=== PATIENT | female | born 1975 | race American Indian/Alaskan Native ===

== ENCOUNTER 2018-12-28 14:24 | Emergency (ER) | payer MEDICAID ==
--- NOTE | 2018-12-28 14:33 | Emergency Department Report ---
ED Abdominal Pain HPI - General Chief Complaint: Abdominal Pain Stated Complaint: ABD PAIN Time Seen by Provider: 12/28/18 14:31 Source: patient, EMS (ems notes not available at time of chart dictation), RN notes reviewed Mode of arrival: Stretcher Limitations: No Limitations - History of Present Illness Initial Comments: This is a 43-year-old female with a 10 year history of interstitial cystitis, reports 2 C-sections in the past, presenting to the emergency room with a complaint of interstitial cystitis exacerbation. Patient reports being her usual state of health yesterday, when she felt like her "uterus was coming out of my vagina", after mopping on a basketball court. Overnight she had intermittent discomfort, decreased sleep, lower back discomfort, dysuria, bladder spasms, which she reports is consistent with her prior episodes of interstitial cystitis. She reports that she saw an outpatient physician within the past few weeks, and was prescribed Bactrim for "bacteria in my urine." She thinks that the Bactrim antibiotic worsened her symptoms. She contacted 911, and was given Toradol in the field, which improved her symptoms. She has intermittent dysuria, but denies new or different gynecologic discharge. She denies headache, neck pain, chest pain, upper abdominal pain, nausea, vomiting, endorses resolved back pain, denies extremity weakness, numbness. Given hydromorphone in the emergency room, which improved her symptoms. She reports her outpatient physician managing her interstitial cystitis has tried multiple therapies, including gabapentin and amitriptyline, which have worked in the past, in addition to hydrodistention therapy, which she is ambivalent about. She is not currently on gabapentin or amitriptyline. MD Complaint: other Location: suprapubic Radiation: none Migration to: no migration Severity: moderate Severity scale (0 -10): 10 Quality: cramping, aching Consistency: intermittent Improves With: medication, rest Worsens With: movement Associated Symptoms: dysuria - Related Data Previous Rx's Medication Instructions Recorded Last Taken Type HYDROcodone/APAP 5-325 [[place] 1 each PO Q4HR PRN #20 tablet 12/13/16 Unknown Rx 5/325] Acetaminophen [Tylenol Arthritis] 650 mg PO Q6HR PRN #30 tablet.er 12/28/18 Unknown Rx Ibuprofen [Motrin] 600 mg PO Q8H PRN #30 tablet 12/28/18 Unknown Rx Nitrofurantoin [place]/M-Cryst 100 mg PO Q12HR #14 capsule 12/28/18 Unknown Rx [Macrobid CAP] Phenazopyridine [Pyridium] 100 mg PO TID PRN #6 tab 12/28/18 Unknown Rx Allergies Allergy/AdvReac Type Severity Reaction Status Date / Time No Known Allergies Allergy Verified 12/12/16 23:22 ED Review of Systems ROS: Stated complaint: ABD PAIN Other details as noted in HPI Constitutional: denies: fever Eyes: denies: vision change ENT: denies: epistaxis Respiratory: denies: cough Cardiovascular: denies: chest pain Gastrointestinal: denies: nausea, vomiting Genitourinary: dysuria Musculoskeletal: back pain Skin: denies: lesions Neurological: denies: weakness Psychiatric: anxiety ED Past Medical Hx - Past Medical History Previous Medical History?: Yes Hx Hypertension: No Hx Pulmonary Embolism: No Hx Liver Disease: No Hx Renal Disease: No Hx Sickle Cell Disease: No Hx Seizures: No Hx Kidney Stones: No Hx Psychiatric Treatment: No Hx Tuberculosis: No Hx Dementia: No Hx HIV: No Additional medical history: interstitial cystitis - Surgical History Past Surgical History?: Yes Additional Surgical History: x 2 - Social History Smoking Status: Current Every Day Smoker Substance Use Type: None - Medications Home Medications: Home Medications Medication Instructions Recorded Confirmed Last Taken Type HYDROcodone/APAP 5-325 [[place] 1 each PO Q4HR PRN #20 tablet 12/13/16 Unknown Rx 5/325] Acetaminophen [Tylenol Arthritis] 650 mg PO Q6HR PRN #30 tablet.er 12/28/18 Unknown Rx Ibuprofen [Motrin] 600 mg PO Q8H PRN #30 tablet 12/28/18 Unknown Rx Nitrofurantoin [place]/M-Cryst 100 mg PO Q12HR #14 capsule 12/28/18 Unknown Rx [Macrobid CAP] Phenazopyridine [Pyridium] 100 mg PO TID PRN #6 tab 12/28/18 Unknown Rx ED Physical Exam - General Limitations: No Limitations General appearance: alert, in no apparent distress - Head Head exam: Present: atraumatic, normocephalic - Eye Eye exam: Present: normal appearance, EOMI. Absent: nystagmus - ENT ENT exam: Present: normal exam, normal orophraynx, mucous membranes moist, normal external ear exam - Neck Neck exam: Present: normal inspection, full ROM. Absent: tenderness, meningismus - Respiratory Respiratory exam: Present: normal lung sounds bilaterally. Absent: respiratory distress - Cardiovascular Cardiovascular Exam: Present: regular rate, normal rhythm, normal heart sounds. Absent: bradycardia, tachycardia, irregular rhythm, systolic murmur, diastolic murmur, rubs, gallop - GI/Abdominal GI/Abdominal exam: Present: soft, tenderness (there is isolated suprapubic tenderness. There is no right lower quadrant tenderness, there is no left lower quadrant tenderness, there is a negative Pena sign, there is a negative Rovsing sign). Absent: distended, guarding, rebound, rigid - External exam: Present: normal external exam. Absent: erythema, swelling, lesions, lacerations, ecchymosis, bleeding Speculum exam: Present: normal speculum exam, other (chaperoned by nurse MAO HOWARD). Absent: erythema, vaginal discharge, cervical discharge, vaginal bleeding, foreign body, tissue, laceration - Extremities Exam Extremities exam: Present: normal inspection, full ROM, normal capillary refill, other (2+ pulses noted in the bilateral upper, lower extremities. Compartments soft. No long bony tenderness. The pelvis is stable.). Absent: pedal edema, joint swelling, calf tenderness - Back Exam Back exam: Present: normal inspection, full ROM. Absent: tenderness, CVA tenderness (R), paraspinal tenderness, vertebral tenderness - Neurological Exam Neurological exam: Present: alert, oriented X3, CN II-XII intact, normal gait, other (Extraocular movements intact. Tongue midline. No facial droop. Facial sensation intact to light touch in the V1, V2, V3 distribution bilaterally. 5 and 5 strength in 4 extremities.. Sensation is intact to light touch in 4 extremities.). Absent: motor sensory deficit - Psychiatric Psychiatric exam: Present: anxious - Skin Skin exam: Present: warm, dry, intact, normal color. Absent: rash ED Course Vital Signs 12/28/18 12/28/18 14:29 14:55 Temperature 98.9 F Pulse Rate 83 Respiratory 15 20 Rate Blood Pressure 117/84 O2 Sat by Pulse 100 Oximetry - Reevaluation(s) Reevaluation #1: 12/28/18 15:49 Differential diagnoses, including but not limited to: Interstitial cystitis, urinary tract infection Assessment and plan: 43-year-old female with probable interstitial cystitis flare, exacerbation. She is afebrile with reassuring vital signs and has a benign physical examination. Patient reports success with outpatient long-term medications, including gabapentin and amitriptyline. She also has a specialist who is performing bladder distention therapy. The patient was treated ac pportively with hydromorphone for acute pain control, given Toradol in the field, screening laboratory studies so far unremarkable, urinalysis is pending, we will reassess once her urinalysis results. Will not discharge gabapentin or amitriptyline as his medications require observation and monitoring, but we will discharge with NSAIDs, acetaminophen, Pyridium, and instructions to follow up. The patient was also counseled to explore complementary therapy, such as diet modifications, [place] exercises and appropriate pelvic floor physical therapy. ED Medical Decision Making - Lab Data Result diagrams: 12/28/18 14:51 12/28/18 14:51 Vital Signs 12/28/18 12/28/18 14:29 14:55 Temperature 98.9 F Pulse Rate 83 Respiratory 15 20 Rate Blood Pressure 117/84 O2 Sat by Pulse 100 Oximetry Lab Results 12/28/18 12/28/18 12/28/18 Range/Units 14:51 14:51 14:51 WBC 8.0 (4.5-11.0) K/mm3 RBC 4.19 (3.65-5.03) M/mm3 Hgb 13.7 (10.1-14.3) gm/dl Hct 39.0 (30.3-42.9) % MCV 93 (79-97) fl MCH 33 H (28-32) pg MCHC 35 H (30-34) % RDW 13.2 (13.2-15.2) % Plt Count 258 (140-440) K/mm3 Sodium 137 (137-145) mmol/L Potassium 3.9 (3.6-5.0) mmol/L Chloride 103.9 (98-107) mmol/L Carbon Dioxide 23 (22-30) mmol/L Anion Gap 14 mmol/L BUN 13 (7-17) mg/dL Creatinine 1.0 (0.7-1.2) mg/dL Estimated GFR > 60 ml/min BUN/Creatinine Ratio 13 % Glucose 78 (65-100) mg/dL Calcium 8.8 (8.4-10.2) mg/dL Total Bilirubin 0.30 (0.1-1.2) mg/dL AST 16 (5-40) units/L ALT 10 (7-56) units/L Alkaline Phosphatase 59 (35-129) units/L Total Protein 7.4 (6.3-8.2) g/dL Albumin 4.2 (3.9-5) g/dL Albumin/Globulin Ratio 1.3 % Lipase 25 (13-60) units/L HCG, Quant < 2 (0-4) mIU/mL Lab Results 12/28/18 12/28/18 12/28/18 Range/Units 14:51 14:51 14:51 WBC 8.0 (4.5-11.0) K/mm3 RBC 4.19 (3.65-5.03) M/mm3 Hgb 13.7 (10.1-14.3) gm/dl Hct 39.0 (30.3-42.9) % MCV 93 (79-97) fl MCH 33 H (28-32) pg MCHC 35 H (30-34) % RDW 13.2 (13.2-15.2) % Plt Count 258 (140-440) K/mm3 Sodium 137 (137-145) mmol/L Potassium 3.9 (3.6-5.0) mmol/L Chloride 103.9 (98-107) mmol/L Carbon Dioxide 23 (22-30) mmol/L Anion Gap 14 mmol/L BUN 13 (7-17) mg/dL Creatinine 1.0 (0.7-1.2) mg/dL Estimated GFR > 60 ml/min BUN/Creatinine Ratio 13 % Glucose 78 (65-100) mg/dL Calcium 8.8 (8.4-10.2) mg/dL Total Bilirubin 0.30 (0.1-1.2) mg/dL AST 16 (5-40) units/L ALT 10 (7-56) units/L Alkaline Phosphatase 59 (35-129) units/L Total Protein 7.4 (6.3-8.2) g/dL Albumin 4.2 (3.9-5) g/dL Albumin/Globulin Ratio 1.3 % Lipase 25 (13-60) units/L HCG, Quant < 2 (0-4) mIU/mL Urine Color (Yellow) Urine Turbidity (Clear) Urine pH (5.0-7.0) Ur Specific [place] (1.003-1.030) Urine Protein (Negative) mg/dL Urine Glucose (UA) (Negative) mg/dL Urine Ketones (Negative) mg/dL Urine Blood (Negative) Urine Nitrite (Negative) Urine Bilirubin (Negative) Urine Urobilinogen (<2.0) mg/dL Ur Leukocyte Esterase (Negative) Urine WBC (Auto) (0.0-6.0) /HPF Urine RBC (Auto) (0.0-6.0) /HPF U Epithel Cells (Auto) (0-13.0) /HPF Urine Bacteria (Auto) (Negative) /HPF Calcium Oxalate Crystal Hyaline Casts /LPF Urine Mucus /HPF 12/28/18 Range/Units 15:24 WBC (4.5-11.0) K/mm3 RBC (3.65-5.03) M/mm3 Hgb (10.1-14.3) gm/dl Hct (30.3-42.9) % MCV (79-97) fl MCH (28-32) pg MCHC (30-34) % RDW (13.2-15.2) % Plt Count (140-440) K/mm3 Sodium (137-145) mmol/L Potassium (3.6-5.0) mmol/L Chloride (98-107) mmol/L Carbon Dioxide (22-30) mmol/L Anion Gap mmol/L BUN (7-17) mg/dL Creatinine (0.7-1.2) mg/dL Estimated GFR ml/min BUN/Creatinine Ratio % Glucose (65-100) mg/dL Calcium (8.4-10.2) mg/dL Total Bilirubin (0.1-1.2) mg/dL AST (5-40) units/L ALT (7-56) units/L Alkaline Phosphatase (35-129) units/L Total Protein (6.3-8.2) g/dL Albumin (3.9-5) g/dL Albumin/Globulin Ratio % Lipase (13-60) units/L HCG, Quant (0-4) mIU/mL Urine Color Lin (Yellow) Urine Turbidity Cloudy (Clear) Urine pH 5.0 (5.0-7.0) Ur Specific [place] 1.031 H (1.003-1.030) Urine Protein 100 mg/dl (Negative) mg/dL Urine Glucose (UA) Neg (Negative) mg/dL Urine Ketones Neg (Negative) mg/dL Urine Blood Neg (Negative) Urine Nitrite Neg (Negative) Urine Bilirubin Neg (Negative) Urine Urobilinogen < 2.0 (<2.0) mg/dL Ur Leukocyte Esterase Sm (Negative) Urine WBC (Auto) 44.0 H (0.0-6.0) /HPF Urine RBC (Auto) 8.0 (0.0-6.0) /HPF U Epithel Cells (Auto) 4.0 (0-13.0) /HPF Urine Bacteria (Auto) 4+ (Negative) /HPF Calcium Oxalate Crystal Few Hyaline Casts 34 /LPF Urine Mucus 3+ /HPF Critical care attestation.: If time is entered above; I have spent that time in minutes in the direct care of this critically ill patient, excluding procedure time. ED Disposition Clinical Impression: Interstitial cystitis Disposition: TO HOME OR SELFCARE Is pt being admited?: No Does the pt Need Aspirin: No Condition: Stable Instructions: Chronic Pelvic Pain in Women (ED) Additional Instructions: Application of local heat or cold over the bladder or perineum as needed may help with pain and symptoms Avoid activities or food or beverages that exacerbate symptoms Common irritants include caffeine, alcohol, artificial sweeteners, hot pepper, and vitamin C-containing foods avoid extremes of fluid intake. In most patients, it is not necessary to drink more than 2 L of fluid per day. Patient may also experience symptom relief through pelvic floor physical therapy. Patient should avoid positions and sexual activities that worsen or ex acerbate pain, symptoms. Patient may elect to explore outpatient pelvic floor physical therapy; Pelvic physical therapy includes treatment of the pelvic muscle tender points, trigger points, connective tissue restrictions, and muscular abnormalities of the soft tissues. This type of treatment is provided by a physical therapist with specialized training in pelvic soft tissue manual manipulation and rehabilitation. Physical therapists in the [place] who focus on pelvic physical therapy for women can be found through the [employer] [email or web address] Follow-up with your primary care doctor, pattern attendant or urologist within the next month for chronic pelvic pain. Return to the emergency room right away with new, worsening or different symptoms. Cultures were sent today, and results will be available in the next 3-5 days. Have a primary care doctor or pattern attendant or urology specialist contact the medical records department to obtain culture results. Prescriptions: Nitrofurantoin [place]/M-Cryst [Macrobid CAP] 100 mg PO Q12HR #14 capsule Ibuprofen [Motrin] 600 mg PO Q8H PRN #30 tablet PRN Reason: Pain Phenazopyridine [Pyridium] 100 mg PO TID PRN #6 tab PRN Reason: Pain , Severe (7-10) Acetaminophen [Tylenol Arthritis] 650 mg PO Q6HR PRN #30 tablet.er PRN Reason: Pain Referrals: NEHEMI[facility] GARCIA [Other] - 3-5 Days [facility] [Provider Group] - 3-5 Days [facility] [Provider Group] - 3-5 Days
[2018-12-28] MEDS ORDERED: DILAUDID IV ONE (14:46)
[2018-12-28 15:04] LABS: Hemoglobin 13.7 gm/dl (10.1-14.3); Mean Corpuscular HGB Conc 35 % (30-34); Mean Corpuscular Volume 93 fl (79-97); Platelet Count 258 K/mm3 (140-440); Red Blood Count 4.19 M/mm3 (3.65-5.03); Red Cell Distribution Width 13.2 % (13.2-15.2)
[2018-12-28] MEDS ORDERED: PYRIDIUM PO ONE (15:24)
[2018-12-28 15:35] LABS: Alanine Aminotransferase 10 units/L (7-56); Albumin 4.2 g/dL (3.9-5); BUN/Creatinine Ratio 13; Blood Urea Nitrogen 13 mg/dL (7-17); Calcium 8.8 mg/dL (8.4-10.2); Hemolysis Index 11
[2018-12-28 16:31] LABS: Bacteria,Urine 4+ /HPF (Negative); Bilirubin,Urine NEG (Negative); Blood,Urine NEG (Negative); Calcium Oxalate Crystals,Urine FEW; Color,Urine Amber (Yellow); Hyaline Casts,Urine 34 /LPF; Mucus,Urine 3+ /HPF; Urobilinogen,Urine < 2.0 mg/dL (<2.0)
[2018-12-28 17:09] VITALS: BP 119/89
== END 2018-12-28 17:08 | disposition home or self-care (01) ==
LOC: ED 14:24
DX: N30.10 Interstitial cystitis (chronic) without hematuria (principal); F17.200 Nicotine dependence, unspecified, uncomplicated
CPT/HCPCS: 36415; 80053; 81001; 83690; 84702; 85027; 87086; 87591; 96374; 99284; J1170